=== PATIENT | male | born 1950 | race Caucasian/White ===

== ENCOUNTER 2019-08-14 09:02 | Emergency (ER) | payer MEDICARE ==
[2019-08-14 09:19] VITALS: BP 160/103; PULSE 101; RESP 20; TEMP 98
--- NOTE | 2019-08-14 10:14 | ED ---
Back Pain HPI - General Chief Complaint: Back Pain/Injury Stated Complaint: back & hip pain Time Seen by Provider: 08/14/19 09:24 Source: patient Limitations: no limitations - History of Present Illness Initial Comments: patient is a 69-year-old male presenting to emergency Department with complaints of low back pain has been increasing over the past week. Patient denies any t rauma or falls. Patient states he has chronic back pain issues that flare up every once in a while. Patient states his lower back began hurting approximately one week ago. Patient states yesterday while he was sitting he felt pain radiating into his left hip. Patient states that pain is no longer here but he is still having significant amount of lower back pain. Patient denies any fever, chills, numbness and tingling to his lower extremities, bowel or bladder incontinence. Patient has not been trying anything for pain relief. Patient has no other complaints at this time. Upon arrival to the ER, BP is slightly elevated at 160/103, rest of vitals are normal. - Related Data Previous Rx's Medication Instructions Recorded Cyclobenzaprine [Flexeril] 5 mg PO BID PRN #10 tablet 08/14/19 predniSONE 20 mg PO BID 5 Days #10 tab 08/14/19 Allergies Allergy/AdvReac Type Severity Reaction Status Date / Time No Known Allergies Allergy Verified 08/14/19 09:19 Review of Systems ROS Statement: Those systems with pertinent positive or pertinent negative responses have been documented in the HPI. ROS Other: All systems not noted in ROS Statement are negative. Past Medical History Past Medical History: No Reported History History of Any Multi-Drug Resistant Organisms: None Reported Past Surgical History: No Surgical Hx Reported Past Psychological History: No Psychological Hx Reported Smoking Status: Current every day smoker Past Alcohol Use History: Occasional Past Drug Use History: None Reported General Exam - General Exam Comments Initial Comments: GENERAL: Well-appearing, well-nourished and in no acute distress. HEAD: Atraumatic, normocephalic. EYES: Pupils equal round and reactive to light, extraocular movements intact, sclera anicteric, conjunctiva are normal. ENT: TMs normal, nares patent, oropharynx clear without exudates. Moist mucous membranes. NECK: Normal range of motion, supple without lymphadenopathy or JVD. LUNGS: Breath sounds clear to auscultation bilaterally and equal. No wheezes rales or rhonchi. HEART: Regular rate and rhythm without murmurs, rubs or gallops. ABDOMEN: Soft, nontender, normoactive bowel sounds. No guarding, no rebound. No masses appreciated. : Deferred EXTREMITIES: No pain with palpation of the lumbar midline spine or lumbar paraspinals. Pain with palpation of the left gluteal and sciatic area.patient has full range of motion of bilateral lower extremities, however increased pain with left straight leg raise. Patient has bilateral and equal sensation. NEUROLOGICAL: Cranial nerves II through XII grossly intact. Normal speech, normal gait. PSYCH: Normal mood, normal affect. SKIN: Warm, Dry, normal turgor, no rashes or lesions noted. Limitations: no limitations Course Vital Signs 08/14/19 09:16 Temperature 98.0 F Pulse Rate 101 H Respiratory 20 Rate Blood Pressure 160/103 O2 Sat by Pulse 98 Oximetry Medical Decision Making - Medical Decision Making patient is a 69-year-old male here with low back pain has been increasing over the past week. No red flag symptoms. No falls or trauma. X-rays reveal no acute fractures dislocations. Moderate multilevel degenerative disc disease. Patient will be given Toradol injection today as well as a prescription for a muscle relaxer/steroids. Patient will continue use heat and gentle stretching the area and he will follow-up with his PCP. Patient is in agreement with this plan of care. Return parameters were discussed with the patient he verbalizes understanding. Disposition Clinical Impression: Low back pain Disposition: HOME SELF-CARE Condition: Stable Instructions (If sedation given, give patient instructions): Acute Low Back Pain (ED) Additional Instructions: Please return to the Emergency Department if symptoms worsen or any other concerns. Use heat to the area as well as gentle stretching. May take Tylenol or Motrin for pain relief. muscle relaxer for spasms Follow-up with your primary care physician if symptoms persist after one week. Prescriptions: Cyclobenzaprine [Flexeril] 5 mg PO BID PRN #10 tablet PRN Reason: Muscle Spasm predniSONE 20 mg PO BID 5 Days #10 tab Is patient prescribed a controlled substance at d/c from ED?: No Referrals: None,Stated [Primary Care Provider] - 1-2 days
--- NOTE | 2019-08-14 10:23 | XR ---
EXAMINATION TYPE: XR lumbar spine 2 or 3V DATE OF EXAM: 08/14/2019 CLINICAL HISTORY: Low back pain. No known injury. TECHNIQUE: Frontal and lateral images of the lumbar spine are obtained. COMPARISON: None FINDINGS: There are 5 lumbar type vertebral bodies identified. The lumbar spine shows satisfactory alignment without evidence of acute fracture or dislocation. Multilevel facet arthropathy, interverte bral disc space narrowing and anterior osteophytes are seen of the lumbar spine. Posterior projecting osteophyte is seen at L4-L5. Extensive atherosclerosis of the abdominal aorta and its branches. Symm etric sacroiliac joint sclerosis is likely degenerative. Vertebral body heights and disk space height s are within normal limits. The overlying soft tissue appears unremarkable. IMPRESSION: 1. No acute fracture or malalignment is seen in the lumbar spine. 2. Moderate multilevel degenerative disc disease of the lumbar spine most pronounced in the lower lum bar spine.
[2019-08-14] MEDS ORDERED: KETOROLAC 30 MG/ML 1 ML VIAL IM STA (10:29)
== END 2019-08-14 10:47 | disposition home or self-care (01) ==
LOC: EC 09:02
DX: M51.36 Other intervertebral disc degeneration, lumbar region (principal); F17.200 Nicotine dependence, unspecified, uncomplicated
CPT/HCPCS: 72100; 99283; 96372; J1885

== ENCOUNTER 2025-03-15 11:19 | Emergency (ER) | payer MEDICARE ==
[2025-03-15 11:25] VITALS: RESP 16; TEMP 97.5
--- NOTE | 2025-03-15 12:44 | XR ---
EXAMINATION TYPE: XR shoulder complete LT, XR hand complete LT DATE OF EXAM: 03/15/2025 12:38 PM COMPARISON: None CLINICAL INDICATION: Male, 74 years old with history of fall, pain; PHH, pain TECHNIQUE: XR shoulder complete LT, XR hand complete LT; examined in AP, internally rotated and scapu lar Y projections. FINDINGS: Left shoulder: Mild degenerative joint space narrowing AC joint. Large inferior acromial spur may be an indirect sig n of underlying chronic full-thickness rotator cuff tear. There is a traumatic anterior, subcoracoid glenohumeral joint dislocation. Large patchy deformity at the greater tuberosity with small comminute d fracture fragments noted at the site of impaction. Visualized left hemithorax is clear. Left hand: Mild to moderate degenerative change first CMC joint and triscaphe joint. Mild degenerative change fi rst MCP and IP joint and also at the fifth DIP joint. Generalized soft tissue swelling of the hand. N o acute fracture, subluxation, dislocation seen. IMPRESSION: Left shoulder: 1. Traumatic anterior, subcoracoid glenohumeral joint dislocation. Large hatchet/Hill Sachs's deformi ty with small comminuted fracture fragments at the site of impaction. 2. Large inferior acromial spur may be an indirect sign of underlying chronic full-thickness rotator cuff tear. Left hand: 3. Generalized soft tissue swelling. Scattered osteophytic change within the bone and 50 IV joint. 4. No acute osseous abnormality seen. [facility], , 03/15/2025 12:42 PM
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
[2025-03-15 13:43] VITALS: BP 183/115; PULSE 80
== END 2025-03-15 14:20 | disposition home or self-care (01) ==
LOC: EC 11:19
DX: S43.005A Unspecified dislocation of left shoulder joint, initial encounter (principal); Y93.55 Activity, bike riding
CPT/HCPCS: 99283